=== PATIENT | female | born 2000 | race Caucasian/White ===

== ENCOUNTER 2023-02-13 23:25 | Emergency (ER) | payer BC, OTHER ==
[2023-02-13 23:32] VITALS: BP 145/79; RESP 20; TEMP 100.7; BMI 25.8
[2023-02-14] MEDS ORDERED: ACETAMINOPHEN 325 MG TABLET (FP) PO ONE (00:18)
[2023-02-14] MEDS ORDERED: ACETAMINOPHEN 500 MG TABLET (FP) ONE (00:35)
[2023-02-14 02:08] VITALS: PULSE 103
== END 2023-02-14 02:08 | disposition home or self-care (01) ==
LOC: JER 23:25
DX: R50.9 Fever, unspecified (principal); R05.9 Cough, unspecified; R09.81 Nasal congestion; J10.1 Influenza due to other identified influenza virus with other respiratory manifestations; M79.10 Myalgia, unspecified site; R00.0 Tachycardia, unspecified; Z20.822 Contact with and (suspected) exposure to COVID-19
CPT/HCPCS: 0241U-QW; 99283-25